=== PATIENT | female | born 1985 | race Caucasian/White ===

== ENCOUNTER → 2024-05-11 13:41 | Outpatient (CLI) | payer BC, OTHER, SELFPAY ==
[2024-05-11 15:34] LABS: HCG Quantitative /Beta subunit 370.75 mIU/mL
== END ==
PROVIDERS: PCP Family Medicine; Referring Provider Family Medicine; Visit Provider Family Medicine
DX: Z34.90 Encounter for supervision of normal pregnancy, unspecified, unspecified trimester (principal); Z98.890 Other specified postprocedural states
CPT/HCPCS: 36415; 84702

== ENCOUNTER → 2024-06-03 08:30 | Outpatient (CLI) | payer BC, OTHER, SELFPAY ==
--- NOTE | 2024-06-03 08:45 | DI.US.S_ITS ---
PROCEDURE: US OB <= 14 WEEKS FETUS INDICATIONS: DATING OUTSIDE/PRIOR DATING DATA: Last menstrual period (LMP): 04/07/2024. LMP-based estimated date of delivery (MICHAEL): 01/12/25. TECHNIQUE: Real-time scanning was performed of the fetus and maternal pelvic organs, with image documentation. Endovaginal scanning was also performed to better visualize the fetus and maternal ovaries. COMPARISON: None. FINDINGS: Yolk sac is seen. No pole identified. Intrauterine gestational sac measures 0.7 cm. This is smaller than expected given gestational age (5 weeks and 3 days versus 8 weeks and 1 day). IMPRESSION: Intrauterine gestational sac without pole. of unknown viability. Recommend clinical imaging follow-up in 14 days or sooner. The gestational sac is smaller than expected given reported LMP. Dictated by: Shoaib Mello M.D. on 06/03/2024 at 13:57 Approved by: Shoaib Mello M.D. on 06/03/2024 at 13:59
[2024-06-03 10:11] LABS: Add Manual Diff / Slide Review NO; Basophils Absolute Auto 0 /uL (0-100); Basophils Percent Auto 0.5 % (0-2); Eosinophils Absolute Auto 100 /uL (0-450); Eosinophils Percent Auto 1.4 % (2-4); Hematocrit 38.5 % (36-46); Hemoglobin 13.4 g/dL (12.0-16.0); Lymphocytes Absolute Auto 1200 /uL (1100-4500); Lymphocytes Percent Auto 25.6 % (25-40); Mean Corpuscular HGB Conc 34.9 % (30-36); Mean Corpuscular Hemoglobin 32.2 PG (26-34); Mean Corpuscular Volume 92.3 fL (80-100); Monocytes Absolute Auto 300 /uL (0-900); Neutrophils Absolute Auto 3000 /uL (1500-7000); Neutrophils Percent Auto 66.5 % (50-75); Platelet Count 272 X10^3/uL (150-400); Red Blood Cell Count 4.17 X10^6/uL (4.0-5.2); Red Cell Distribution Width 12.2 % (11.6-14.8); White Blood Cell Count 4.5 X10^3/uL (4.5-11.0)
[2024-06-03 10:29] LABS: Alanine Aminotransferase 45 IU/L (<35); Albumin 4.7 g/dL (3.5-5.0); Alkaline Phosphatase 41 U/L (38-126); Aspartate Aminotransferase 28 IU/L (14-36); BUN Creatinine Ratio 14.3 (6-22); Bilirubin Total 0.6 mg/dL (0.2-1.3); Blood Urea Nitrogen 8 mg/dL (7-17); Calcium 9.8 mg/dL (8.4-10.2); Carbon Dioxide 22 mmol/L (22-32); Chloride 106 mmol/L (98-107); Estimated Glomerular Filt Rate > 60 mL/min (>60); Globulin 2.4 g/dL (1.7-4.1); Glucose 89 mg/dL (70-100); HEMOLYSIS < 15 (0-50); Sodium 139 mmol/L (137-145); Total Protein 7.1 g/dL (6.3-8.2); Uric Acid 4.3 mg/dL (2.5-6.2)
[2024-06-03 10:34] LABS: Appearance Urine UA CLEAR; Bilirubin Urine UA NEGATIVE (NEGATIVE); Color Urine UA YELLOW; Glucose Urine UA NEGATIVE (Negative); Ketones Urine UA NEGATIVE (NEGATIVE); Leukocyte Esterase Urine UA NEGATIVE (NEGATIVE); Nitrite Urine UA NEGATIVE (Negative); Occult Blood Urine UA TRACE-INTACT (Negative); Protein Urine UA NEGATIVE (Negative); Specific Gravity Urine UA <=1.005 (1.000-1.035); Urobilinogen Urine UA 0.2 E.U./dL (0.2)
[2024-06-03 10:36] LABS: pH Urine UA 5.5 (4.5-8.0)
[2024-06-03 10:55] LABS: Creatinine Urine Random 6.07 mg/dL; Protein (Total) Urine Random 15 mg/dL (0-12); Protein Creatinine Ratio Urine 2.47 GRAM/24H
[2024-06-04 04:10] LABS: RPR Screen Non Reactive (Non Reactive)
[2024-06-04 09:10] LABS: Varicella IgG Antibody Reactive (Non Reactive)
[2024-06-04 15:34] LABS: Hepatitis B Surface Antigen NEGATIVE s/c (NEGATIVE); Rubella Antibody IgG 57.3 IU/mL (>15)
[2024-06-04 15:51] LABS: HIV 1 & 2 Ab/Ag 4th Gen Combo NEGATIVE (NEGATIVE); Hep C Virus Ab w/Reflex Quant NEGATIVE s/c (NEGATIVE)
== END ==
PROVIDERS: PCP Family Medicine; Referring Provider Family Medicine; Visit Provider Family Medicine
DX: O36.80X0 Pregnancy with inconclusive fetal viability, not applicable or unspecified (principal); I10 Essential (primary) hypertension
CPT/HCPCS: 36415; 76801; 76817; 80053; 80055; 81003; 82570; 84156; 84550; 86787; 86803; 86850; 86900; 86901; 87086; 87389

== ENCOUNTER 2024-06-08 09:03 | Emergency (ER) | payer BC, SELFPAY ==
--- NOTE | 2024-06-08 09:13 | DI.US.S_ITS ---
PROCEDURE: US OB <= 14 WEEKS FETUS INDICATIONS: 8 weeks cramping bleeding. US last week no pole OUTSIDE/PRIOR DATING DATA: Last menstrual period (LMP): 04/07/2024. LMP-based estimated date of delivery (MICHAEL): 01/12/2025. First dating scan (date and location): 06/03/2024. Estimated date of delivery (MICHAEL) from first dating scan: Not applicable. The calculations are made using the working MICHAEL of 01/13/2024. TECHNIQUE: Real-time scanning was performed of the fetus and maternal pelvic organs, with image documentation. Endovaginal scanning was also performed to better visualize the fetus and maternal ovaries. COMPARISON: [facility], , US OB <= 14 WEEKS FETUS, 06/03/2024, 8:52. FINDINGS: Embryo: Not present Heart rate: Not present Previously there was a gestational sac with yolk sac, neither of which are currently present. Maternal organs: Ovaries are unremarkable.. IMPRESSION: Apparent spontaneous of very early 1st trimester intrauterine . No crown-rump length was ever identified. We strive to produce accurate, complete, and clear reports of imaging services. To assist us in improving patient care, this report was composed using standard report templates and voice recognition software. Therefore, it may contain abnormal punctuation, insertions and/or omissions. Occasional wrong-word or sound-alike substitutions may occur. Though we review the report and make efforts to correct it, we do recommend that the report be read carefully in proper context to recognize any text inaccuracies. Dictated by: Issac Freeman M.D. on 06/08/2024 at 10:50 Approved by: Issac Freeman M.D. on 06/08/2024 at 10:53
[2024-06-08 09:14] VITALS: BP 144/88; PULSE 77; RESP 16; TEMP 37; O2SAT 98; BMI 31.8
[2024-06-08 09:37] LABS: Add Manual Diff / Slide Review NO; Basophils Absolute Auto 0 /uL (0-100); Basophils Percent Auto 0.8 % (0-2); Eosinophils Absolute Auto 100 /uL (0-450); Eosinophils Percent Auto 1.4 % (2-4); Hematocrit 37.3 % (36-46); Hemoglobin 13.1 g/dL (12.0-16.0); Lymphocytes Absolute Auto 1200 /uL (1100-4500); Lymphocytes Percent Auto 24.4 % (25-40); Mean Corpuscular HGB Conc 35.2 % (30-36); Mean Corpuscular Hemoglobin 32.2 PG (26-34); Mean Corpuscular Volume 91.5 fL (80-100); Monocytes Absolute Auto 300 /uL (0-900); Monocytes Percent Auto 5.7 % (3-14); Neutrophils Absolute Auto 3300 /uL (1500-7000); Neutrophils Percent Auto 67.7 % (50-75); Platelet Count 259 X10^3/uL (150-400); Red Blood Cell Count 4.08 X10^6/uL (4.0-5.2); Red Cell Distribution Width 12.2 % (11.6-14.8); White Blood Cell Count 4.9 X10^3/uL (4.5-11.0)
[2024-06-08 09:50] LABS: Alanine Aminotransferase 42 IU/L (<35); Albumin 4.6 g/dL (3.5-5.0); Albumin Globulin Ratio 1.7 (1.0-2.8); Alkaline Phosphatase 43 U/L (38-126); Aspartate Aminotransferase 26 IU/L (14-36); BUN Creatinine Ratio 16.7 (6-22); Bilirubin Total 0.6 mg/dL (0.2-1.3); Blood Urea Nitrogen 9 mg/dL (7-17); Calcium 9.5 mg/dL (8.4-10.2); Carbon Dioxide 23 mmol/L (22-32); Chloride 104 mmol/L (98-107); Estimated Glomerular Filt Rate > 60 mL/min (>60); Globulin 2.7 g/dL (1.7-4.1); Glucose 102 mg/dL (70-100); HEMOLYSIS < 15 (0-50); Potassium 3.8 mmol/L (3.4-5.1); Sodium 136 mmol/L (137-145); Total Protein 7.3 g/dL (6.3-8.2)
[2024-06-08 10:06] LABS: HCG Quantitative /Beta subunit 1892.7 mIU/mL
[2024-06-08 10:22] VITALS: PULSE 66; O2SAT 99
[2024-06-08 10:23] VITALS: BP 131/80; PULSE 16
[2024-06-08 10:30] VITALS: BP 129/83; PULSE 66; O2SAT 97
[2024-06-08 11:00] VITALS: BP 125/76; PULSE 64; O2SAT 96
--- NOTE | 2024-06-08 11:40 | ED_ITS ---
HPI - General Chief complaint: OB/Uterine Contractions Stated complaint: Might be having a Miscarriage Time Seen by Provider: 06/08/24 11:33 Source: patient, RN notes reviewed and old records reviewed Mode of arrival: Ambulatory Limitations: no limitations History of Present Illness HPI Narrative: 38-year-old female menstrual period was early April, patient states she had an ultrasound on 06/03 which showed gestational sac but no heartbeat and there was concern about potential for miscarriage. Patient states started having some vaginal bleeding and cramping over the last several days has had some clots today. No lightheadedness or passing out, no chest pain or shortness of breath, no nausea or vomiting no other GI or urinary symptoms. No fevers. Patient has had prior pregnancies was a negative and did receive RhoGAM with prior pregnancies. States she is currently on losartan as home medication, no known drug allergies. No tobacco, no regular alcohol or recreational drugs. Dr. Coulter is his per primary care physician Related Data Home Medications Medication Instructions Recorded Confirmed vitamin-ferrous sulfate tab PO 05/25/24 05/29/24 27 mg iron-folic acid 0.8 mg tablet Previous Rx's Medication Instructions Recorded labetalol 200 mg tablet 200 mg PO BID #60 tabs 05/14/24 Allergies Allergy/AdvReac Type Severity Reaction Status Date / Time No Known Drug Allergies Allergy Unverified 06/08/24 09:17 Review of Systems Review of Systems ROS Unobtainable: All systems reviewed & are unremarkable except as noted in HPI and below Exam Narrative Exam Narrative: GENERAL: Alert and oriented x three, female in mild distress HEENT: Head normocephalic, atraumatic, EOMI, pupils reactive, face symmetric, moist mucous membranes NECK: Supple, full range of motion CARDIOVASCULAR: Regular rate and rhythm without murmurs, rubs or gallops. RESPIRATORY: Breath sounds equal bilaterally, no wheezes rales or rhonchi. ABDOMEN: Soft, nontender. Normoactive bowel sounds all 4 quadrants. No guarding or rebound, rigidity, no mass EXTREMITIES: Normal range of motion NEUROLOGICAL: Cranial nerves II through XII grossly intact. Moving all extremities SKIN: Warm, dry, no petechiae, no rashes or lesions. Initial Vital Signs Initial Vital Signs: Vital Signs Temperature 98.6 F 06/08/24 09:14 Pulse Rate 77 06/08/24 09:14 Respiratory Rate 16 06/08/24 09:14 Blood Pressure 144/88 H 06/08/24 09:14 Pulse Oximetry 98 06/08/24 09:14 Oxygen Delivery Method Room Air 06/08/24 09:14 Course Orders Ordered: Discontinued Medications Rho Immune Globulin (Rho(D) Immune Globulin 1,500 Unit Syringe) 1,500 unit IM NOW ONE Stop: 06/08/24 11:46 Last Admin: 06/08/24 12:02 Dose: 1,500 unit Documented By: ROMAINE Vital Signs Vital signs: Vital Signs - 8 hr 06/08/24 09:14 06/08/24 10:22 06/08/24 10:23 Temperature 98.6 F Pulse Rate 77 66 16 L Respiratory Rate 16 Blood Pressure 144/88 H 131/80 Pulse Oximetry 98 99 Oxygen Delivery Method Room Air Room Air 06/08/24 10:30 06/08/24 10:30 06/08/24 11:00 Temperature Pulse Rate 66 Respiratory Rate Blood Pressure 129/83 125/76 Pulse Oximetry 97 Oxygen Delivery Method 06/08/24 11:00 Temperature Pulse Rate 64 Respiratory Rate Blood Pressure Pulse Oximetry 96 Oxygen Delivery Method MDM - OB/Uterine Contractions Lab Data 06/08/24 09:20 06/08/24 09:20 Labs: Lab Results 06/08/24 Range/Units 09:20 WBC 4.9 (4.5-11.0) X10^3/uL RBC 4.08 (4.0-5.2) X10^6/uL Hgb 13.1 (12.0-16.0) g/dL Hct 37.3 (36-46) % MCV 91.5 (80-100) fL MCH 32.2 (26-34) PG MCHC 35.2 (30-36) % RDW 12.2 (11.6-14.8) % Plt Count 259 (150-400) X10^3/uL Neut % (Auto) 67.7 (50-75) % Lymph % (Auto) 24.4 L (25-40) % Leon % (Auto) 5.7 (3-14) % Eos % (Auto) 1.4 L (2-4) % Baso % (Auto) 0.8 (0-2) % Neut # (Auto) 3300 (4019-3504) /uL Lymph # (Auto) 1200 (0945-7080) /uL Leon # (Auto) 300 (0-900) /uL Eos # (Auto) 100 (0-450) /uL Baso # (Auto) 0 (0-100) /uL Sodium 136 L (137-145) mmol/L Potassium 3.8 (3.4-5.1) mmol/L Chloride 104 (98-107) mmol/L Carbon Dioxide 23 (22-32) mmol/L BUN 9 (7-17) mg/dL Creatinine 0.54 (0.52-1.04) mg/dL Estimated GFR > 60 (>60) mL/min BUN/Creatinine Ratio 16.7 (6-22) Glucose 102 H (70-100) mg/dL Calcium 9.5 (8.4-10.2) mg/dL Total Bilirubin 0.6 (0.2-1.3) mg/dL AST 26 (14-36) IU/L ALT 42 H (<35) IU/L Alkaline Phosphatase 43 (38-126) U/L Total Protein 7.3 (6.3-8.2) g/dL Albumin 4.6 (3.5-5.0) g/dL Globulin 2.7 (1.7-4.1) g/dL Albumin/Globulin Ratio 1.7 (1.0-2.8) HCG, Quant 1892.7 mIU/mL Blood Type A Negative Antibody Screen Negative Imaging Data US - OB: Radiologist's Impression: Close Ultrasound (Signed) Issac Freeman - 06/08/24 Ultrasound (Signed) Shoaib Mello - 06/03/24 [place] [id number] Ultrasound Report Signed Patient: Ruby Mandujano MR#: [id number] : 1985 Acct:[id number] Age/Sex: 38 / F Date of Service: 06/08/24 Loc: ED Accession Number: [id number] Procedure: US OB <= 14 weeks fetus Ordering Provider: Beverley Frank D.O. PROCEDURE: US OB <= 14 WEEKS FETUS INDICATIONS: 8 weeks cramping bleeding. US last week no pole OUTSIDE/PRIOR DATING DATA: Last menstrual period (LMP): 04/07/2024. LMP-based estimated date of delivery (MICHAEL): 01/12/2025. First dating scan (date and location): 06/03/2024. Estimated date of delivery (MICHAEL) from first dating scan: Not applicable. The calculations are made using the working MICHAEL of 01/13/2024. TECHNIQUE: Real-time scanning was performed of the fetus and maternal pelvic organs, with image documentation. Endovaginal scanning was also performed to better visualize the fetus and maternal ovaries. COMPARISON: [facility], , OB <= 14 WEEKS FETUS, 06/03/2024, 8:52. FINDINGS: Embryo: Not present Heart rate: Not present Previously there was a gestational sac with yolk sac, neither of which are currently present. Maternal organs: Ovaries are unremarkable.. IMPRESSION: Apparent spontaneous of very early 1st trimester intrauterine . No crown-rump length was ever identified. We strive to produce accurate, complete, and clear reports of imaging services. To assist us in improving patient care, this report was composed using standard report templates and voice recognition software. Therefore, it may contain abnormal punctuation, insertions and/or omissions. Occasional wrong-word or sound-alike substitutions may occur. Though we review the report and make efforts to correct it, we do recommend that the report be read carefully in proper context to recognize any text inaccuracies. Dictated by: Issac Freeman M.D. on 06/08/2024 at 10:50 Approved by: Issac Freeman M.D. on 06/08/2024 at 10:53 [facility] Narrative Medical decision making narrative: 38-year-old female who had a prior ultrasound which showed gestational age of 8 weeks but with yolk sac and no heart tones. Patient has had increased cramping and some vaginal bleeding. Hemoglobin is 13.1 with a white count of 4.9 platelets are 259. Chemistry shows sodium 136 otherwise normal electrolytes, BUN creatinine glucose of 102 ALT is 42 but otherwise normal LFTs quant hCG is 1892. No recent hCG for comparison. Patient is A negative. Ob ultrasound shows no gestational or yolk sac which repair on prior ultrasound. Appears patient has had spontaneous miscarriage early first-trimester intrauterine . Ovaries are unremarkable. 38-year-old female with a appears to have had a missed miscarriage or spontaneous she has a negative so RhoGAM was ordered. Plan for follow up with the OBGYN to trend out hCG but patient had prior gestational sac with yolk sac seen on ultrasound on 06/03/2024. Discussed findings with the patient was given dose of RhoGAM here. Discussed need for follow-up and rechecked. All questions answered. Discharge Plan Departure Patient Disposition: Home Clinical Impression: Miscarriage Instructions: DI for Miscarriage Activity Restrictions/Additional Instructions: Follow up with Dr. Coulter for recheck. You did receive RhoGAM today. You can take acetaminophen up to a 1000 mg every 6 hours and/or ibuprofen up to 600 mg every 6 hours as needed for pain. Please use pads, avoid tampons at this time. Please return for fevers new abdominal back or flank pain, increasingly large amounts of bleeding or going through a a pad more than hourly, lightheadedness or passing out, persistent nausea or vomiting or other new or concerning changes. Prescriptions: No Action labetalol 200 mg tablet 200 mg PO BID Qty: 60 0RF vit-ferrous sulfat-FA 27 mg iron- 0.8 mg tablet PO Referrals: Mariam Coulter MD [Primary Care Provider] - Stand Alone Forms: Patient Portal/API/Survey
[2024-06-08] MEDS: RHO(D) IMMUNE GLOBULIN 1,500 UNIT SYRINGE 1500 UNIT IM (12:02)
[2024-06-08 12:06] VITALS: BP 134/80; PULSE 63; RESP 16; TEMP 36.8; O2SAT 99
== END 2024-06-08 12:07 | disposition home or self-care (01) ==
PROVIDERS: Emergency Provider Emergency Medicine; PCP Family Medicine
DX: O03.9 Complete or unspecified spontaneous abortion without complication (principal)
CPT/HCPCS: 76801; 76817; 80053; 84702; 85025; 86850; 86900; 86901; 96372; 99284; J2790

== ENCOUNTER → 2024-06-17 08:31 | Outpatient (CLI) | payer BC, OTHER, MEDICAID, SELFPAY ==
--- NOTE | 2024-06-17 08:32 | DI.US.S_ITS ---
PROCEDURE: US PELVIC COMPLETE INDICATIONS: F/U SAB; BLEEDING TECHNIQUE: Real-time scanning was performed of the pelvic organs, with image documentation. Additional endovaginal scanning was necessary due to incomplete visualization of the adnexal and endometrial structures by transabdominal scanning. COMPARISON: [facility], US, US OB <= 14 WEEKS FETUS, 06/08/2024, 9:54. FINDINGS: Uterus: Uterus is anteverted and normal in size at 7.6 x 3.3 x 4.0 cm. The myometrium is homogeneous. The endometrium measures 2.6 mm combined thickness. Ovaries: The right ovary measures 3.5 x 2.3 x 2.7 cm, with a calculated ovarian volume of 11.2 cc. The left ovary measures 2.8 x 3.0 x 1.9 cm, with a calculated ovarian volume of 8.4 cc. There is a focus of echogenicity within the cervix measuring approximately 3.5 x 1.2 x 1.7 cm. There is no increased vascularity. Other: No pathologic free abdominal or pelvic fluid. IMPRESSION: Focus of echogenicity in the lower cervix measuring 3.5 cm. This may represent clot. Retained products of conception cannot be definitively excluded. However, there is no associated increased vascularity which is typically identified. We strive to produce accurate, complete, and clear reports of imaging services. To assist us in improving patient care, this report was composed using standard report templates and voice recognition software. Therefore, it may contain abnormal punctuation, insertions and/or omissions. Occasional wrong-word or sound-alike substitutions may occur. Though we review the report and make efforts to correct it, we do recommend that the report be read carefully in proper context to recognize any text inaccuracies. Dictated by: Malka Cruz M.D. on 06/17/2024 at 18:01 Approved by: Malka Cruz M.D. on 06/17/2024 at 18:02
[2024-06-17 11:13] LABS: HCG Quantitative /Beta subunit 82.77 mIU/mL
== END ==
PROVIDERS: PCP Family Medicine; Referring Provider Family Medicine; Visit Provider Family Medicine
DX: O03.9 Complete or unspecified spontaneous abortion without complication (principal)
CPT/HCPCS: 36415; 76830; 76856; 84702

== ENCOUNTER → 2024-06-27 10:51 | Outpatient (CLI) | payer BC, OTHER, MEDICAID, SELFPAY ==
[2024-06-27 13:59] LABS: HCG Quantitative /Beta subunit < 2.39 mIU/mL
== END ==
PROVIDERS: PCP Family Medicine; Referring Provider Family Medicine; Visit Provider Family Medicine
DX: O03.9 Complete or unspecified spontaneous abortion without complication (principal)
CPT/HCPCS: 36415; 84702

== ENCOUNTER → 2025-02-19 09:45 | Outpatient (CLI) | payer OTHER, SELFPAY | PROVIDERS: PCP Family Medicine; Visit Provider Nurse Practitioner Family | DX: J02.9 Acute pharyngitis, unspecified (principal) | CPT/HCPCS: 87070 ==